=== PATIENT | female | born 1985 | race Caucasian/White ===

== ENCOUNTER 2016-10-07 16:08 | Emergency (ER) | payer OTHER ==
[2015-01-06 05:58] VITALS: BMI 21.6
[~2016-10-07 16:08] MED LIST: FLAGYL500 MG; HYDROCODON-ACE1 EAC7 PO; IBUPROFEN600 MG PO; PENICILLIN V; PRENATAL COMPLE1 TAB PO
== END 2016-10-07 19:57 | disposition home or self-care (01) ==
LOC: D.ER 16:08
DX: T14.8 Other injury of unspecified body region (principal); X58.XXXA Exposure to other specified factors, initial encounter; Y93.89 Activity, other specified; Y92.019 Unspecified place in single-family (private) house as the place of occurrence of the external cause; M62.830 Muscle spasm of back

== ENCOUNTER 2016-11-25 19:27 | Emergency (ER) | payer OTHER ==
[2015-01-06 05:58] VITALS: BMI 21.6
== END 2016-11-25 21:53 | disposition home or self-care (01) ==
LOC: D.ER 19:27
DX: R51 Headache (principal); J02.9 Acute pharyngitis, unspecified; F17.200 Nicotine dependence, unspecified, uncomplicated

== ENCOUNTER 2017-01-23 22:00 | Emergency (ER) | payer OTHER ==
[2015-01-06 05:58] VITALS: BMI 21.6
== END 2017-01-24 00:36 | disposition home or self-care (01) ==
LOC: D.ER 22:00
DX: L25.9 Unspecified contact dermatitis, unspecified cause (principal); F17.200 Nicotine dependence, unspecified, uncomplicated

== ENCOUNTER 2017-03-26 13:38 | Emergency (ER) | payer OTHER ==
[2015-01-06 05:58] VITALS: BMI 21.6
[2017-03-26 14:17] LABS: BASOPHILS 0.2 % (0-2); EOSINOPHILS 0.8 % (0-7); HEMATOCRIT 33.5 % (36.0-48.0); HEMOGLOBIN 11.6 g/dL (12-16); IMMATURE GRANULOCYTES 0.3 % (0-5); LYMPHOCYTES 15.5 % (15-50); MCHC 34.6 g/dL (31.0-37.0); MCV 95.2 fL (80.0-100.0); MEAN PLATELET VOLUME 8.3 fL (7.4-10.4); MONOCYTES 5.3 % (2-11); NEUTROPHILS 77.9 % (40-80); PLATELET COUNT 191 10x3/uL (130-400); RBC 3.52 10x6/uL (4.00-5.40); RDW 13.1 % (11.5-14.5)
[2017-03-26 14:50] LABS: ALKALINE PHOSPHATASE 75 U/L (46-116); ALT (SGPT) 21 U/L (10-68); BILIRUBIN - TOTAL 0.27 mg/dL (0.2-1.3); CALC OSMOLALITY 272 mosm/kg (275-300); CALCIUM 8.9 mg/dL (8.5-10.1); CARBON DIOXIDE 20.1 mmol/L (21.0-32.0); CHLORIDE - SERUM 103 mmol/L (98-107); CREATININE - SERUM 0.4 mg/dL (0.6-1.3); GLUCOSE 88 mg/dL (74-106); PROTEIN - SERUM 6.3 g/dL (6.4-8.2); SODIUM 137 mmol/L (136-145); UREA NITROGEN 13 mg/dL (7-18); eGFR NON AFRICAN AMERICAN > 90 mL/min (90-120)
[2017-03-26 16:00] LABS: APPEARANCE CLEAR (CLEAR); BILIRUBIN NEGATIVE (NEGATIVE); COLOR YELLOW (YELLOW); GLUCOSE NEGATIVE (NEGATIVE); KETONE NEGATIVE (NEGATIVE); LEUKOCYTE ESTERASE NEGATIVE (NEGATIVE); NITRITE NEGATIVE (NEGATIVE); PROTEIN NEGATIVE (NEGATIVE); UROBILINOGEN NORMAL (NORMAL)
[2017-03-26 16:04] LABS: BACTERIA FEW /hpf (NONE SEEN)
== END 2017-03-26 19:15 | disposition home or self-care (01) ==
LOC: D.ER 13:38
PROVIDERS: Emergency Medicine
DX: R10.2 Pelvic and perineal pain (principal); F17.200 Nicotine dependence, unspecified, uncomplicated

== ENCOUNTER → 2017-05-17 11:44 | Outpatient (CLI) | payer OTHER ==
[2015-01-06 05:58] VITALS: BMI 21.6
== END | disposition home or self-care (01) ==
LOC: D.LDO 11:44
DX: Z34.90 Encounter for supervision of normal pregnancy, unspecified, unspecified trimester (principal); R10.9 Unspecified abdominal pain

== ENCOUNTER → 2017-08-03 20:40 | Outpatient (CLI) | payer OTHER ==
[2015-01-06 05:58] VITALS: BMI 21.6
[~2017-08-03 20:40] MED LIST changes: +IBUPROFEN800 MG PO
[2017-08-03 21:38] LABS: APPEARANCE HAZY (CLEAR); BILIRUBIN NEGATIVE (NEGATIVE); COLOR YELLOW (YELLOW); GLUCOSE NEGATIVE (NEGATIVE); KETONE NEGATIVE (NEGATIVE); NITRITE NEGATIVE (NEGATIVE); PROTEIN NEGATIVE (NEGATIVE); SPECIFIC GRAVITY 1.015 (1.005-1.020); UROBILINOGEN NORMAL (NORMAL)
[2017-08-03 21:39] LABS: BACTERIA MANY /hpf (NONE SEEN); MUCUS <1+ /lpf (NONE SEEN); RED CELLS - URINE 0-5 /hpf (0-5); WHITE CELLS - URINE >50 /hpf (0-5)
== END | disposition home or self-care (01) ==
LOC: D.LDO 20:40
PROVIDERS: Obstetrics & Gynecology
DX: O26.893 Other specified pregnancy related conditions, third trimester (principal); Z3A.38 38 weeks gestation of pregnancy

== ENCOUNTER 2017-08-04 16:00 | Inpatient (IN) | payer OTHER ==
[~2017-08-04] VITALS: Ht 160 cm; Wt 57.3 kg
[~2017-08-04 16:00] MED LIST changes: -IBUPROFEN800 MG PO
[2017-08-04 22:43] VITALS: BP 106/73
[2017-08-04 22:48] VITALS: BP 106/73; Ht 160 cm; Wt 57.3 kg
[2017-08-04 23:33] LABS: HEMATOCRIT 35.5 % (36.0-48.0); HEMOGLOBIN 12.3 g/dL (12-16); MCH 32.8 pg (26.0-34.0); MCHC 34.6 g/dL (31.0-37.0); MCV 94.7 fL (80.0-100.0); RBC 3.75 10x6/uL (4.00-5.40); RDW 12.4 % (11.5-14.5); WBC 12.1 10x3/uL (4.8-10.8)
--- NOTE | 2017-08-05 07:55 | NUR ---
FUNDUS FIRM AT U/2 WITH LIGHT LOCHIA AND NO CLOTS NOTED WITH MESSAGE. PT REQUEST NEW ICE PACK, C/O PERINEAL PAIN THAT SHE RATES AT 5/10. NO SWELLING NOTED. ICE PACK APPLIED AND PT ENCOURAGED TO TRY AND TILT TO ONE SIDE AND NOT STRAIGHT UP FOR LONG PERIODS OF TIME TO HELP DECREASE PAIN. SIDE RAILS UP X 2 WITH PHONE AND CALL LIGHT WITH IN HER REACH. NURSERY NUMBER PROVIDED PER REQUEST.
--- NOTE | 2017-08-05 08:45 | NUR ---
INFANT TO BREAST AT THIS TIME, NURSERY NURSE REMAINS AT BEDSIDE. PITOCIN 20UNITS/1000ML NS COMPLETED AND PUMP TURNED OFF, IV SALINE LOCKED. BED IN LOW POSITION WITH SIDE RAILS UP X 2, PHONE AND CALL LIGHT AT BEDSIDE AND WITH IN PATIENTS REACH.
--- NOTE | 2017-08-05 10:20 | NUR ---
Bonding with infant, denies pain at this time, states understanding to call for nurse before attempting to get out of bed for first time. Bed low with side rails up x 2 and call light in reach.
--- NOTE | 2017-08-05 11:30 | NUR ---
PT UP TO VOID WITH LITTLE ASSISTANCE FROM NURSE. ABLE TO VOID 400ML WITHOUT COMPLAINT. HAMLET CARE PER HERSELF, GOWN CHANGED, HAMLET PAD AND PANTIES PROVIDED. PT AMB TO ROOM 1273 WITH IN CARRIER. DENIES NEEDS AT THIS TIME. CALL LIGHT IN REACH.
--- NOTE | 2017-08-05 12:53 | NUR ---
DIETARY NOTIFIED PER PT REQUEST ABOUT GUEST TRAY, PER MIKE IT IS ON THE WAY NOW.
--- NOTE | 2017-08-05 14:00 | NUR ---
Sprite with large cup of ice provided per request, pt up to void with no assistance needed. Rates pain at 3/10, states understanding that pain medication is ordered if needed but must let nurse know. Side rails up x 2 with call light in reach and in crib at bedside.
--- NOTE | 2017-08-05 14:45 | NUR ---
Called to room, pt ask that temp in room be adjusted because "it is to hot" temp lowered and pt shown how she may adjust this herself. No other needs at this time.
--- NOTE | 2017-08-05 15:30 | NUR ---
Call light answered large cup of ice with 2 lemon [place] oreilles drinks per pt request. Pt has menu filled out that she states was just given to her by dietary, ask that it be sent to them. Menu faxed.
--- NOTE | 2017-08-05 16:20 | NUR ---
Pt calls for assistance with . This rn to room and pt ask that be "wrapped" back up in blankets. reswaddled with 2 blankets, pt talking on phone or teaching would have been done on how to do this herself.
--- NOTE | 2017-08-05 17:36 | NUR ---
Called to room with complaint that supper tray was not correct. FOB has already started eating tray that was served. Dietary called spoke with Diana who took pt request, also faxed menu to dietary again. 2 cola and lemon [place] drink taken to room per pt request. no other needs voiced at time. in crip at bedside, side rails up x 2 with phone and call light in reach.
--- NOTE | 2017-08-05 19:00 | NUR ---
PATIENT REPORT RECEIVED FROM ZITA VALDES TO ASSUME PATIENT CARE.
--- NOTE | 2017-08-05 19:46 | NUR ---
PATIENT REQUESTING PAIN MEDICATION FOR PERINEAL PAIN. TYLENOL 3 ONE TAB PO AT THIS TIME WITH SPRITE PER PT REQUEST AND MD ORDER.
[2017-08-05 19:50] VITALS: BP 122/66
--- NOTE | 2017-08-05 19:50 | NUR ---
PATIENT LAYING IN BED WITH IN ARMS. ASSESSMENT DONE AT THIS TIME. FUNDUS FIRM, MIDLINE, -2. BLEEDING SCANT, PERIPAD AND PANTIES IN PLACE. RESPIRATIONS EVEN AND NON LAOBRED. VS WNL. NO NEEDS IDENTIFIED.
--- NOTE | 2017-08-05 20:05 | NUR ---
PILLOW PROVIDED PER PT REQUEST TO HELP PROP ARM WHILE INFANT. DENIES OTHER NEEDS AT THIS TIME. INSTRUCTED TO CALL WITH ANY FURTHER NEEDS.
--- NOTE | 2017-08-05 20:15 | NUR ---
CALLED TO ROOM BY PATIENT, WASHCLOTH PROVIDED FOR . PT STATES THAT THE SPIT UP. BULB SYRINGE WITHIN REACH AND PT TEACHING COMPLETED ON USE. PT VERBALIZES UNDERSTANDING AND DENIES ANY FURTHER NEEDS AT THIS TIME.
--- NOTE | 2017-08-05 21:00 | NUR ---
PATIENT LAYING IN BED WITH IN HER ARMS. ORANGE JUICE AND ICE PROVIDED PER PT REQUEST. PATIENT INSTRUCTED TO CALL WITH ANY FURTHER NEEDS. CALL AKBAR REMAINS IN REACH.
--- NOTE | 2017-08-05 22:00 | NUR ---
PATIENT LAYING IN BED WATCHING TV. REMAINS IN ROOM IN OPEN CRIB ON HER BACK AT THIS TIME. PATIENT STATES THAT HER PAIN IS MUCH BETTER AND RATES IT A 2/10. DENIES NEEDS AT THIS TIME.
[2017-08-05 23:00] VITALS: BP 95/54
--- NOTE | 2017-08-05 23:00 | NUR ---
PATIENT LYING IN BED, SIDE RAILS UPX2, BED LOCKED IN LOW POSITION, CALL AKBAR AND TRAY TABLE IN REACH. PT DENIES ANY NEEDS AT THIS TIME, ENCOURAGED TO CALL WITH ANY NEEDS.
--- NOTE | 2017-08-06 01:05 | NUR ---
PATIENT LYING IN BED, BROUGHT TO ROOM AT THIS TIME PER NURSERY RN. CUP OF ICE PROVIDED PER PT REQUEST. TRAY TABLE AND CALL AKBAR IN REACH. BED LOCKED IN LOW POSITION AND SIDERAILS UPX2. RESPIRATIONS EVEN AND NON LABORED. PT DENIES OTHER NEEDS AT THIS TIME. ENCOURAGED TO CALL WITH ANY NEEDS. PT VERBALIZES UNDERSTANDING.
--- NOTE | 2017-08-06 03:05 | NUR ---
PATIENT LAYING IN BED HOLDING INFANT. STATES THAT SHE JUST FINISHED FEEDING HER. DENIES NEEDS AT THIS TIME. CALL AKBAR AND TRAY TABLE IN REACH, BED LOCKED IN LOW POSITION AND SIDERAILS UPX2. INSTRUCTED TO CALL WITH ANY NEEDS. PT VERBALIZES UNDERSTANDING
[2017-08-06 05:13] LABS: RAPID PLASMA REAGIN Non Reactive (Non Reactive)
--- NOTE | 2017-08-06 05:40 | NUR ---
PATIENT ROUNDS DONE AT THIS TIME, PATIENT DENIES PAIN, ORANGE JUICE AND ICE PROVIDED PER PT. REQUEST. CALL AKBAR AND TRAY TABLE IN REACH, PT ENCOURAGED TO CALL WITH ANY FURTHER NEEDS.
--- NOTE | 2017-08-06 07:09 | NUR ---
patient report given to ru jackson to assume patient care.
[2017-08-06 08:45] VITALS: BP 105/59
--- NOTE | 2017-08-06 08:52 | NUR ---
entered room to see pt. pt states that dr ventura was in this morning and told her that she could stay another night and would evaluate in morning. pt states that she is getting up and goint to bathroom as needed.scant lochia noted on pads. fundus u2/firm with massage. pt requesting pain medication- co cramping lower back and abd. pt rates pain an 8 or 9 on scale of 0-10.
--- NOTE | 2017-08-06 09:23 | NUR ---
PT RESTING WITH EYES CLOSED WHEN ENTERED ROOM WITH PAIN MEDICATION. STARTLES WHEN NAME CALLED. PT STATES THAT SHE IS NOT ALLERGIC TO TYLENOL. MED GIVEN PER PT REQUEST.
--- NOTE | 2017-08-06 11:30 | NUR ---
pt resting -states she is napping some with infant in room. states pain in lower back and abd is better.
[2017-08-06 12:30] VITALS: BP 101/63
--- NOTE | 2017-08-06 13:04 | NUR ---
up to shower. linens changed.
--- NOTE | 2017-08-06 14:08 | NUR ---
rings call light- requesting pain medication for co cramping in abd. rates pain an 8-9 on scale of 0-10.
--- NOTE | 2017-08-06 14:25 | NUR ---
dr ventura in unit- states that pt may stay overnight if desires and he will see her in the morning.
--- NOTE | 2017-08-06 17:30 | NUR ---
sitting up in bed eating dinner- denies needs.
[2017-08-06 19:17] VITALS: BP 112/74
--- NOTE | 2017-08-06 19:23 | NUR ---
PT RECEIVED TO MY CARE IN LDR 1273. PT RESTING IN BED IN HIGH FOWLERS POSITION, HOLDING , PT IN NO ACUTE DISTRESS. PT IS A 31YO G5 NOW WITH OF VIABLE FEMALE INFANT YESTERDAY @ 0645. INFANT @ 39.0 WKS GESTATION. PT WITH NO LACERATION OR EPIS. AAOX3. HR REGULAR. LUNGS CTAB. ABDOMEN SOFT AND NON TENDER. BS ACTIVE TIMES 4. FUNDUS NOT PALPATED. HAMLET PAD AND PANTIES IN PLACE. PERINIUM APPEARS TO BE INTACT. LOCHIA RUBRA SCANT. PT STATES SHE IS PASSING GAS BUT HAS NOT HAD A BM SINCE . PT DENIES DIFFICULTY VOIDING AND STATES SHE TOLERATING A REGULAR DIET. NO SWELLING NOTED TO UPPER OR LOWER EXTREMITIES BILATERALLY. 18G SL IN PLACE TO LEFT WRIST, FLUSHED WITH 5 CC NS WITHOUT DIFFICULTY. NO REDNESS OR EDEMA NOTED TO SITE. PT RATES PAIN AT 2/10 AT THIS TIME. DENIES THE NEED FOR MEDICATION. PT DENIES ANY FURTHER NEEDS. BED IN LOW POSITION, SIDE RAILS UP TIMES 2, CALL LIGHT AND PHONE IN REACH. REMAINS AT PT BS FOR COUPLET CARE. WILL CONT TO MONITOR PT STATUS.
--- NOTE | 2017-08-06 21:04 | NUR ---
RN TO PT BS FOR ROUNDS. PT RESTING IN BED IN HIGH FOWLERS POSITION, HOLDING , IN NO ACUTE DISTRESS. PT REQUESTS FRESH ICE MUG. PROVIDED. PT DENIES ANY FURTHER NEEDS AT THIS TIME. BED IN LOW POSITION, SIDE RAILS UP TIMES 2, CALL LIGHT AND PHONE IN REACH. INFANT REMAINS AT PT BS FOR SUPPORT AND ASSISTANCE. WILL CONT TO MONITOR PT STATUS.
--- NOTE | 2017-08-06 23:03 | NUR ---
RN TO PT BS FOR ROUNDS. PT RESTING IN BED IN HIGH FOWLERS POSITION, HOLDING , IN NO ACUTE DISTRESS. PT REQUESTS ADDITIONAL HAMLET PADS. PROVIDED AT THIS TIME. PT DENIES ANY FURTHER NEEDS AT THIS TIME. BED IN LOW POSITION, SIDE RAILS UP TIMES 2, CALL LIGHT AND PHONE IN REACH. INFANT REMAINS AT PT BS FOR COUPLET CARE. WILL CONT TO MONITOR PT STATUS.
--- NOTE | 2017-08-07 00:01 | NUR ---
RN TO PT BS FOR ROUNDS. PT RESTING IN BED IN SEMI-FOWLERS POSITION, WITH EYES CLOSED, IN NO ACUTE DISTRESS. RESPIRATIONS EVEN AND UNLABORED. BED IN LOW POSITION, SIDE RAILS UP TIMES 2, CALL LIGHT AND PHONE IN REACH. REMAINS AT PT BS FOR SUPPORT AND ASSISTANCE. WILL CONT TO MONITOR PT STATUS.
--- NOTE | 2017-08-07 01:34 | NUR ---
HOLDING AT PRESENT. C/O ABD. CRAMPING PT. RATES A 7 OF 10 ON PAIN SCALE. PAIN MED GIVEN ORDERED. ICE WATER PROVIDED TO PT. CALL LIGHT WITHIN REACH. PT. CURRENTLY WATCHING TV.
--- NOTE | 2017-08-07 02:14 | NUR ---
RN TO PT BS FOR ROUNDS. PT RESTING IN BED IN SEMI-FOWLERS POSITION, WITH EYES CLOSED, IN NO ACUTE DISTRESS. RESPIRATIONS EVEN AND UNLABORED. BED IN LOW POSITION, SIDE RAILS UP TIMES 2, CALL LIGHT AND PHONE IN REACH. REMAINS AT PT BS FOR COUPLET CARE. WILL CONT TO MONITOR PT STATUS.
--- NOTE | 2017-08-07 03:27 | NUR ---
RN TO PT BS. INFANT FUSSY. ADDITIONAL BOTTLE PROVIDED TO PT FOR FEED. PT STATES SHE WILL ATTEMPT TO BREASTFEED INFANT FIRST PRIOR TO BOTTLEFEED. PT DENIES ANY NEEDS BED IN LOW POSITION, SIDE RAILS UP TIMES 2, CALL LIGHT AND PHONE IN REACH. REMAINS AT PT BS FOR COUPLET CARE. WILL GIVE REPORT TO NURSERY NURSE AND CONT TO MONITOR PT STATUS.
--- NOTE | 2017-08-07 05:50 | NUR ---
RN TO PT BS FOR ROUNDS. PT RESTING IN BED IN SEMI-FOWLERS POSITION, WITH EYES CLOSED, IN NO ACUTE DITRESS. RESPIRATIONS EVEN AND UNLABORED. BED IN LOW POSITION, SIDE RAILS UP TIMES 2, CALL LIGHT AND PHONE IN REACH. INFANT REMAINS AT PT BS FOR COUPLET CARE. WILL CONT TO MONITOR PT STATUS.
--- NOTE | 2017-08-07 07:33 | NUR ---
SLEEPING ON RIGHT SIDE. RESPIRATIONS EVEN. SIDE RAILS UP X 2. NOT AROUSED AT THIS TIME. WILL COMPLETE ASSESSMENT WHEN AWAKE. ANTICIPATE DC HOME TODAY.
[2017-08-07 08:06] VITALS: BP 115/61
--- NOTE | 2017-08-07 08:10 | NUR ---
AWAKE, LAYING ON RIGHT SIDE. SHIFT ASSESSMENT DONE. 04/14 ABDOMINAL PAIN "LIKE SOMETHING SITTING ON MY BLADDER". DISCUSSED UTERUS AND POSSIBLE NEED TO VOID AT THIS TIME. ENCOURAGED TO GET UP AND VOID. DECLINES FLU VACCINE, DESIRES TDAP BEFORE GOING HOME. INFANT IN NURSERY. BOTTLEFEEDING. SMOKER. SIDE RAILS UP X 2, CALL LIGHT IN REACH.
--- NOTE | 2017-08-07 08:25 | NUR ---
TYLENOL #3 GIVEN PO FOR RELIEF OF PAIN AFTER CONFIRMING NO ALLERGIES TO TYLENOL NOR CODEINE. STATES "I DON'T KNOW WHY THEY SAID THAT. I CANT TAKE LORITABS". SAYS HER PAIN IS PRIMARILY LOCATED LEFT UPPER ABDOMEN UNDER LOWER COSTAL REGION. SAYS IT COMES AND GOES SINCE CHILDBIRTH. ACTIVE BS. SLIGHT TENDERNESS OVER AREA. SITTING UP IN BED EATING BREAKFAST. UNSURE OF LAST BM. WILL REASSESS PAIN AFTER TYLENOL #3.
--- NOTE | 2017-08-07 09:18 | NUR ---
SITTING UP IN BED EATING BREAKFAST. INFANT IN ARMS. SAYS PAIN IS BETTER 3-12/13. NO REQUESTS. CALL LIGHT IN REACH.
--- NOTE | 2017-08-07 10:33 | NUR ---
SLEEPING IN BED WITH IN ARMS. AROUSED FROM SLEEP. INSTRUCTED NOT TO SLEEP WITH IN BED AND REASONS. PLACED IN CRIB NEAR BEDSIDE. DESIRES TO CONTINUE TO SLEEP. LIGHTS ON LOW, SIDE RAILS UP X 2, CALL LIGHT IN REACH. INSTRUCTED ON TDAP, INFORMATION IN ROOM AND RECOMMENDED REVIEWING WHEN SHE WAKES UP. VERBALIZED UNDERSTANDING.
[2017-08-07] MEDS ORDERED: IBUPROFEN800 MG PO (14:19)
--- NOTE | 2017-08-07 14:45 | NUR ---
DC'D VIA WHEELCHAIR WITH IN CARSEAT AFTER PROVIDING VERBAL AND WRITTEN INFORMATION ON ROUTINE PP CARE, S&S INFECTION, PP DEPRESSION, SMOKING CESSATION, CARSEAT SAFETY, MEDICATION ADMINISTRATION AND FOLLOW-UP. ALL BELONGINGS REMOVED FROM ROOM. HAS PRESCRIPTION FOR MOTRIN.
== END 2017-08-07 14:45 | disposition home or self-care (01) | DRG 775 ==
LOC: D.LD 16:00
PROVIDERS: ADMIT Obstetrics & Gynecology
PROC: 10E0XZZ Delivery of Products of Conception, External Approach (ICD-10-PCS; principal; 2017-08-05)
PROC: 3E0P7VZ Introduction of Hormone into Female Reproductive, Via Natural or Artificial Opening (ICD-10-PCS; 2017-08-05)
DX: O62.3 Precipitate labor (principal); O69.81X0 Labor and delivery complicated by cord around neck, without compression, not applicable or unspecified; Z3A.39 39 weeks gestation of pregnancy; Z37.0 Single live birth

== ENCOUNTER 2017-11-24 12:14 | Emergency (ER) | payer MEDICAID ==
[2017-08-04 22:48] VITALS: BMI 22.3
[~2017-11-24 12:14] MED LIST changes: +IBUPROFEN800 MG PO
[2017-11-24 13:18] LABS: ALBUMIN 3.9 g/dL (3.4-5.0); ALKALINE PHOSPHATASE 74 U/L (46-116); ALT (SGPT) 24 U/L (10-68); BILIRUBIN - TOTAL 0.51 mg/dL (0.2-1.3); CALC OSMOLALITY 274 mosm/kg (275-300); CARBON DIOXIDE 23.5 mmol/L (21.0-32.0); CHLORIDE - SERUM 105 mmol/L (98-107); CREATININE - SERUM 0.7 mg/dL (0.6-1.3); GLUCOSE 90 mg/dL (74-106); POTASSIUM - SERUM 3.9 mmol/L (3.5-5.1); PROTEIN - SERUM 7.2 g/dL (6.4-8.2); SODIUM 138 mmol/L (136-145); UREA NITROGEN 11 mg/dL (7-18); eGFR NON AFRICAN AMERICAN > 90 mL/min (90-120)
[2017-11-24 13:21] LABS: HEMATOCRIT 38.9 % (36.0-48.0); HEMOGLOBIN 13.3 g/dL (12-16); LYMPHOCYTES 38.8 % (15-50); MCH 31.1 pg (26.0-34.0); MCHC 34.2 g/dL (31.0-37.0); MCV 91.1 fL (80.0-100.0); MEAN PLATELET VOLUME 8.2 fL (7.4-10.4); RBC 4.27 10x6/uL (4.00-5.40); RDW 12.6 % (11.5-14.5); WBC 4.4 10x3/uL (4.8-10.8)
[2017-11-24 13:24] LABS: PLATELET COUNT 245 10x3/uL (130-400)
[2017-11-24 13:26] LABS: TROPONIN-I < 0.017 ng/mL (0.000-0.060)
[2017-11-24 13:40] LABS: CKMB 0.3 U/L (0.0-3.6); CREATINE KINASE 69 UL (21-215); PRO BNP 106 pg/mL (0-125)
[2017-11-24 13:52] LABS: APTT 28.1 SECONDS (22.8-39.4); INR 1.08 (0.85-1.17); PROTIME 13.6 SECONDS (11.6-15.0)
[2017-11-24 13:53] LABS: D-DIMER-QUANTITATIVE < 0.27 ug/mLFEU (0.20-0.54)
== END 2017-11-24 17:32 | disposition home or self-care (01) ==
LOC: D.ER 12:14
PROVIDERS: Family Medicine
DX: M94.0 Chondrocostal junction syndrome [Tietze] (principal); F17.200 Nicotine dependence, unspecified, uncomplicated

== ENCOUNTER → 2019-03-09 13:31 | Outpatient (CLI) | payer MEDICAID ==
[2017-08-04 22:48] VITALS: BMI 22.3
[2019-03-09 13:56] LABS: APPEARANCE CLEAR (CLEAR); BILIRUBIN NEGATIVE (NEGATIVE); COLOR YELLOW (YELLOW); GLUCOSE NEGATIVE (NEGATIVE); KETONE NEGATIVE (NEGATIVE); NITRITE NEGATIVE (NEGATIVE); PROTEIN NEGATIVE (NEGATIVE)
== END | disposition home or self-care (01) ==
LOC: D.LDO 13:31
PROVIDERS: ATTEND Obstetrics & Gynecology
DX: O26.893 Other specified pregnancy related conditions, third trimester (principal); Z3A.33 33 weeks gestation of pregnancy

== ENCOUNTER → 2019-04-09 15:55 | Outpatient (CLI) | payer MEDICAID ==
[2017-08-04 22:48] VITALS: BMI 22.3
[2019-04-09 16:39] LABS: APPEARANCE HAZY (CLEAR); BILIRUBIN NEGATIVE (NEGATIVE); COLOR YELLOW (YELLOW); GLUCOSE NEGATIVE (NEGATIVE); KETONE NEGATIVE (NEGATIVE); NITRITE NEGATIVE (NEGATIVE); PROTEIN NEGATIVE (NEGATIVE); UROBILINOGEN NORMAL (NORMAL)
[2019-04-09 16:41] LABS: BACTERIA MODERATE /hpf (NONE SEEN); RED CELLS - URINE OCC /hpf (0-5); WHITE CELLS - URINE 0-5 /hpf (0-5)
[2019-04-09 16:54] LABS: UDS - AMPHET NEGATIVE QUAL (NEGATIVE); UDS - BARB NEGATIVE QUAL (NEGATIVE); UDS - BENZO NEGATIVE QUAL (NEGATIVE); UDS - COCAINE NEGATIVE QUAL (NEGATIVE); UDS - OPIATE NEGATIVE QUAL (NEGATIVE); UDS - PCP NEGATIVE QUAL (NEGATIVE); UDS - THC NEGATIVE QUAL (NEGATIVE)
== END | disposition home or self-care (01) ==
LOC: D.LDO 15:55
PROVIDERS: ATTEND Obstetrics & Gynecology
DX: O26.90 Pregnancy related conditions, unspecified, unspecified trimester (principal)

== ENCOUNTER → 2019-04-12 10:02 | Outpatient (CLI) | payer SELFPAY ==
[2017-08-04 22:48] VITALS: BMI 22.3
== END | disposition home or self-care (01) ==
LOC: D.LDO 10:02
PROVIDERS: ATTEND Obstetrics & Gynecology
DX: O35.9XX0 Maternal care for (suspected) fetal abnormality and damage, unspecified, not applicable or unspecified (principal)

== ENCOUNTER 2019-04-16 05:12 | Inpatient (IN) | payer MEDICAID ==
[~2019-04-16] VITALS: Ht 160 cm; Wt 53.1 kg
[2019-04-16 05:34] VITALS: BP 115/55; Ht 160 cm; Wt 53.1 kg
[2019-04-16 07:34] LABS: HEMATOCRIT 32.8 % (36.0-48.0); MCH 35.9 pg (26.0-34.0); MCHC 36.6 g/dL (31.0-37.0); MCV 98.2 fL (80.0-100.0); MEAN PLATELET VOLUME 9.8 fL (7.4-10.4); RBC 3.34 10x6/uL (4.00-5.40); RDW 14.3 % (11.5-14.5); WBC 8.9 10x3/uL (4.8-10.8)
[2019-04-16 07:39] LABS: APPEARANCE CLEAR (CLEAR); BILIRUBIN NEGATIVE (NEGATIVE); COLOR YELLOW (YELLOW); GLUCOSE NEGATIVE (NEGATIVE); KETONE NEGATIVE (NEGATIVE); NITRITE NEGATIVE (NEGATIVE); PROTEIN NEGATIVE (NEGATIVE); SPECIFIC GRAVITY 1.005 (1.005-1.020); UROBILINOGEN NORMAL (NORMAL)
[2019-04-16 07:41] LABS: UDS - AMPHET NEGATIVE QUAL (NEGATIVE); UDS - BARB NEGATIVE QUAL (NEGATIVE); UDS - BENZO NEGATIVE QUAL (NEGATIVE); UDS - COCAINE NEGATIVE QUAL (NEGATIVE); UDS - OPIATE NEGATIVE QUAL (NEGATIVE); UDS - PCP NEGATIVE QUAL (NEGATIVE); UDS - THC NEGATIVE QUAL (NEGATIVE)
[2019-04-16 19:22] VITALS: BP 132/58
--- NOTE | 2019-04-16 19:30 | NUR ---
PATIENT UP ON BEDPAN
--- NOTE | 2019-04-16 19:40 | NUR ---
DR DELGADO PAGED WITH IMMEDIATE CALL BACK. INFORMED OF PT ALLERGY TO HYDROCODONE. ORDERS NOTED TO D/C TETE ORDER
--- NOTE | 2019-04-16 20:34 | NUR ---
PATIENT VOIDED 500ML. PERICARE DONE AND PT . WILL CONTINUE TO MONITOR
--- NOTE | 2019-04-16 21:08 | NUR ---
INFANT TO NURSERY VIA OPEN CRIB PER PT REQUEST.
--- NOTE | 2019-04-16 21:15 | NUR ---
motrin administered per md orders and pt request, see emar
--- NOTE | 2019-04-16 21:25 | NUR ---
PT AMBULATED TO BATHROOM, VOIDED WITHOUT DIFFICULTY AT THIS TIME, PERICARE PERFORMED WITH BETADINE AND WATER. CLEAN PADS AND PANTIES PLACED. PT CHANGED INTO A CLEAN GOWN AND AMBULATED TO WHEELCHAIR. PT STATES THAT SHE NEEDS TO GO OUT TO GET SOME FRESH AIR. FOB AND FAMILY MEMBERS AT HER SIDE.
--- NOTE | 2019-04-16 21:50 | NUR ---
PT TO ROOM 1274, UP TO BATHROOM AND INSTRUCTED TO CALL WITH ANY NEEDS.
--- NOTE | 2019-04-16 22:30 | NUR ---
REPORT RECEIVED FROM PAUL AHUMADA
--- NOTE | 2019-04-16 22:37 | NUR ---
PATIENT REPORT TO ZITA FLORENTINO TO ASSUME PT CARE AT THIS TIME
--- NOTE | 2019-04-16 23:01 | NUR ---
PT IN BED, VISITORS AT BEDSIDE, DENIES ANY NEEDS. VSS
--- NOTE | 2019-04-16 23:19 | NUR ---
PT C/O NAUSEA. DR DANNY NIETO. ORDERS FROM ZOFRAN 4MG PO PRN Q 6 ORDERED
--- NOTE | 2019-04-16 23:25 | NUR ---
ZOFRAN 4MG PO GIVEN FOR NAUSEA.
[2019-04-17 00:01] VITALS: BP 110/62
--- NOTE | 2019-04-17 00:30 | NUR ---
PT C/O PAIN. STATED THAT TYLENOL WAS OK TO TAKE AND PT STATED NO ALLERGY TO TYLENOL. DR DELGADO ORDERED TYLENOL 100MG Q 6PRN
--- NOTE | 2019-04-17 00:35 | NUR ---
PT C/O PAIN. TYLENOL 1000MG PO GIVEN PER ORDER. DENIES ANY OTHER NEED
--- NOTE | 2019-04-17 02:22 | NUR ---
PT SITTING UP IN BED. WATCHING TV. DENIES NEEDS AT THIS TIME
--- NOTE | 2019-04-17 03:30 | NUR ---
RESTING IN BED WITH EYES CLOSED. RESP WNL. CL IN REACH. SR UP X 2. WILL MONITOR
--- NOTE | 2019-04-17 04:37 | NUR ---
RESTING WITH EYES CLOSED. NO DISTRESS NOTED, CL IN REACH
--- NOTE | 2019-04-17 05:21 | NUR ---
AWAKE AND ALERT SITTING UP IN BED, DENIES ANY NEEDS
[2019-04-17 05:22] VITALS: BP 112/67
[2019-04-17 07:14] LABS: RAPID PLASMA REAGIN Non Reactive (Non Reactive)
--- NOTE | 2019-04-17 07:43 | NUR ---
PT SITTING UP IN BED EATING BREAKFAST, INFANT ON BREAST, INFORMED PT THAT I WILL BE BACK TO DO ASSESSMENT, PT VERBALIZES UNDERSTANDING, C/O CRAMPING, ADM RAVINDERRIN PER MD ORDERS, SEE EMAR, PT DENIES FURTHER NEEDS
[2019-04-17 08:01] LABS: BASOPHILS 0.2 % (0-2); EOSINOPHILS 1.3 % (0-7); HEMATOCRIT 30.5 % (36.0-48.0); HEMOGLOBIN 10.6 g/dL (12-16); IMMATURE GRANULOCYTES 0.6 % (0-5); MCH 33.3 pg (26.0-34.0); MCHC 34.8 g/dL (31.0-37.0); MEAN PLATELET VOLUME 9.7 fL (7.4-10.4); NEUTROPHILS 67.9 % (40-80); PLATELET COUNT 183 10x3/uL (130-400); RBC 3.18 10x6/uL (4.00-5.40); RDW 14.3 % (11.5-14.5); WBC 10.3 10x3/uL (4.8-10.8)
[2019-04-17 08:06] LABS: MCV 95.9 fL (80.0-100.0)
[2019-04-17 08:30] VITALS: BP 103/56
--- NOTE | 2019-04-17 08:30 | NUR ---
ASSESSMENT PER FLOW SHEET, SALINE LOCK IN LEFT FA INTACT WITH NO REDNESS OR EDEMA, FF, ML, U/1, PT REPORTS LITE BLEEDING WITH NO CLOTS, REPORTS FLATUS, NO BM AND VOIDING WITH NO DIFFICULTY, PT DENIES NEEDS AT THIS TIME
--- NOTE | 2019-04-17 08:32 | NUR ---
Lee Paul 04/17/[birth year] S: Patient states is going great. latches with out any problems, no sore nipples or tenderness, and feels like is going great. Denies any questions or concerns. O: Patient lying in bed, in nursery. States she is tried and plans on trying to get some rest. Praised for . Informed patient takes time, practice, and patience in the beginning. Explained breastmilk composition, benefits of skin to skin, position, how to verify is latched correctly, supply and demand, feeding cues, normal feeding patterns for a breastfed , and the importance of practicing responsive feeding. It is normal for infant to want to nurse often every 2-3 hours or sooner. How long remain latch can vary per feeding and this is normal. Asked if any pain or discomfort with infant latch or any questions/concerns? Encouraged to ask for help as needed with latching infant. A: Patient appear confident with due to no questions or concerns. Expresses positive feedback with experience. P: Continue to support during hospital visit. Gerard Scales, CLC
--- NOTE | 2019-04-17 09:30 | NUR ---
PT RESTING WITH EYES CLOSED, RESP QUIET, NO DISTRESS NOTED, LEFT UNDISTURBED AT THIS TIME
--- NOTE | 2019-04-17 10:33 | NUR ---
PT AWAKE, VISITING WITH FRIEND, FRIEND HOLDING INFANT AT THIS TIME, FOB AT BEDSIDE, PT DENIES NEEDS OR PAIN AT THIS TIME
--- NOTE | 2019-04-17 11:42 | NUR ---
PT HOLDING INFANT, DENIES NEEDS OR PAIN AT THIS TIME
--- NOTE | 2019-04-17 12:35 | NUR ---
PT EATING LUNCH, HOLDING , DENIES NEEDS OR PAIN AT THIS TIME, FOB AT BEDSIDE
--- NOTE | 2019-04-17 13:38 | NUR ---
PT IMMIGRATION PATROL INSPECTOR LIGHT, REQUESTED AND PROVIDED HAMLET PADS PER LISA BOO, RN, THIS RN TO ROOM ALSO, PT INFORMED THAT DR DELGADO SAID THAT PT CANNOT LEAVE UNIT AT ALL, PT VERBALIZES UNDERSTANDING, DENIES FURTHER NEEDS
--- NOTE | 2019-04-17 14:30 | NUR ---
UPON ENTERING ROOM, PT IS RESTING WITH EYES CLOSED, HOLDING , PT AROUSES TO SOFT VERBAL STIMULATION, INFORMED PT REGARDING SLEEPING WITH IN BED, PT VERBALIZES UNDERSTANDING, INFANT TO NSY VIA OPEN CRIB CART PER THIS RN, PT DENIES NEEDS OR PAIN AT THIS TIME, FOB ASLEEP ON COUCH
--- NOTE | 2019-04-17 15:23 | NUR ---
PT HOLDING INFANT, , DENIES NEEDS OR PAIN AT THIS TIME
--- NOTE | 2019-04-17 16:36 | NUR ---
DINNER TRAY SERVED, ADM TYLENOL PER REQUEST, SEE EMAR, PT REQUESTED AND PROVIDED CREAM AND SUGAR, DENIES FURTHER NEEDS
[2019-04-17 17:13] VITALS: BP 106/57
--- NOTE | 2019-04-17 17:13 | NUR ---
PT FINISHED EATING, INFANT AT THIS TIME, VS OBTAINED, DENIES NEEDS OR PAIN
--- NOTE | 2019-04-17 18:17 | NUR ---
PT UP IN ROOM, JUST FINISHED CHANGING INFANTS DIAPER, PT DENIES NEEDS OR PAIN AT THIS TIME
[2019-04-17 19:57] VITALS: BP 108/55
--- NOTE | 2019-04-17 20:06 | NUR ---
1954 [place] REC'D IN BED ASLEEP AT THIS TIME. DENIES PAIN. SALINE LOCK TO THE LEFT FOREARM. LUNGS CELAR. BS+. FUNDUS FIRM AND U/2 WITH SCANT LOCHIA NOTED. NO DISTRESS NOTED. PT DENIES ANY NEEDS AT THIS TIME. CALL LIGHT IN PT REACH. Trini PAK RN
--- NOTE | 2019-04-17 21:45 | NUR ---
PT RESTING AT THIS TIME. RESPS EVEN AND UNLABORED . Trini PAK RN
--- NOTE | 2019-04-17 23:25 | NUR ---
pt asleep at this time. familia nava rn
--- NOTE | 2019-04-18 00:51 | NUR ---
PT MEDICATED WITH MOTRIN FOR BACK PAIN AT A LEVEL OF 8. WILL CONTINUE TO MONITOR. PT AWAKENENED AND INSTRUCTED TO PLACE INFANT IN CRIB. INFNAT BEGAN ROOTING AND WAS PLACED TO BREAST. Trini PAK RN
--- NOTE | 2019-04-18 02:03 | NUR ---
PT REPORTS NO PAIN AT THIS TIME. PT RESTING COMFORTABLY. Trini PAK RN
--- NOTE | 2019-04-18 03:50 | NUR ---
PT REC'D IN BED ASLEEP WITH IN ARMS. INFANT COVERED WITH BLANKET. PT AWAKENED AT THIS TIME AND INSTRUCTED TO PLACE INFANT IN CRIB OR BREASTFEED INFANT AND STAY AWAKE TO AVOID SUFFOCATION RISK. UNDERSTANDING VERBALIZED. REC'D FROM MOTHER AND TAKEN TO NURSERY. MOTHER DENIES NEEDS AT THIS TIME. Trini PAK RN
[2019-04-18 07:55] VITALS: BP 109/68
--- NOTE | 2019-04-18 09:25 | NUR ---
pt up to br, voiding per self without difficulty, pt denies heavy bleeding or passing clots. pericare done per self. pt provided with peripads/panties. pt denies all other needs at this time. call light within reach.
--- NOTE | 2019-04-18 09:38 | NUR ---
Lee Paul WILMAR@ 8:45 S: Client states has a perfect latch. latched immediately and is going great. No questions or concerns regarding . No problems with sore nipples or latching . O: Patient sitting up in bed eating breakfast, infant sleeping in crib, family member sleep on sofa in room. Praised for . Informed patient takes time, practice, and patience in the beginning. Explained normal feeding patterns for a breastfed , benefits of skin to skin, feeding cues, positions, how to verify infant is latched correctly, and encouraged to practice responsive feeding. It is normal for infant to want to nurse often and how long remains latch to vary per feeding. Asked if any questions, concerns, pain or discomfort with latching? Please ask for help as needed with . A: Patient appears confident with due to no questions or concerns. P: Continue to promote during hospital visit. Gerard Scales, CLC
--- NOTE | 2019-04-18 13:10 | NUR ---
PT SITTING UP IN THE BED, FEEDING BOTTLE TO INFANT. PT WISHES TO STAY UNTIL BABY GETS CIRCUMCISED LATER THIS AFTERNOON. TELEPHONE CALL MADE TO DR. DELGADO FOR DISCHARGE ORDER, TELEPHONE ORDER RECEIVED TO DISCHARGE PT HOME FOR FOLLOW UP IN 4 WEEKS FOR .
[2019-04-18] MEDS ORDERED: IBUPROFEN600 MG PO (21:34)
--- NOTE | 2019-04-19 03:47 | MORECARE ---
CASE MANAGEMENT DISCHARGE SUMMARY PATIENT: IDRIS PAUL UNIT: [id number] ADM DATE: 04/16/19 AGE: 33 : 87 SEX: F ROOM/BED: D.1274 AUTHOR: CECILIADOC PHYSICIAN: REFERRING PHYSICIAN: BEA DELGADO MD DATE OF SERVICE: 04/18/19 Discharge Plan Patient Name: IDRIS PAUL Facility: [facility]:[place] : 1985 Planned Disposition: Anticipated Discharge Date: Discharge Date: Expected LOS: Initial Reviewer: [email or web address] Initial Review Date: 04/16/2019 Generated: 04/18/19 11:00 pm Comments DCP- Discharge Planning Updated by [email or web address]: Natalie Wilder on 04/18/19 9:[address] DC PLAN: MOB states she plans taking home Address: Can't give an address moving to [facility] tomorrow "Space in my Place" DC NEEDS: Denies any needs TRANSPORTATION: friend will transport to appointments or use [facility] bus WIC: No appointment yet MEDICAID: MOB states she has filled out paperwork CAR SEAT: Yes FEEDING PLAN: Plans breast feeding BABY NAME: Mathew Engel FOB: Lex Engel MOB: Idris Paul SOLAR SALES CONSULTANT: Chanel CARE: MOB states she had care throughout SUPPLIES: MOB states has car seat, bed, diapers only has bottles from hospital to use if needed WATER SOURCE: city?? HEAT SOURCE: Electric ?? AIR CONDITIONING: yes ?? CM met with MOB after obtaining verbal consent regarding dc planning/needs. MOB to return to her home with infant. States home environment is safe. She states in addition to herself, five other people live in the home. MOB states she will have transportation either by friends or [employer] to follow up appointments. MOB states this is her fifth child. After CM probed asking multiple questions regarding patients other children she admitted that her other children was in DHS custody. Ages 5, 4, 1.5. The 11 yr. old child the father has custody. MOB states that she lost custody of children about a month ago d/t not having any electricity. 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 MOB states that ANNETTA is self-employed but will get another job once they move to [facility]. MOB states there are no pets in the home. MOB states that she and ANNETTA both smoke but it is outside the home. Denies any drug or etoh use in the home. When CM was asking about home situation and address JENNIFER was very vague. Stating she doesn't know about heat/ air / address or anything else directly related to home situation. MOB states that she has a friend that will pick her up after 10pm tonight after he gets off work. MOB states that she will stay with this friend tonight then move to [facility] tomorrow. MOB can't give an address of where she will stay tonight. Denies any other discharge needs at this time. CM will continue to follow and assist as needed with dc planning/needs. CM notified nursery staff regarding MOB not having custody of other children. CM also explained that it was very difficult to get information out of mother. CM called [facility] regarding questionable safety of infant upon discharge. DHS worker at [facility] didn't state that the infant needed to be held at hospital but CM, nursery and L&D nursing staff don't feel it would be safe for infant to discharge with no known address and with other children being already in [facility] custody. CASE # [id number] [facility] stated that it will probably be tomorrow before a dependency case manager will be out to evaluate. Nursery and L&D staff will notify physicians contact and service clerks supervisor. CM notified visiting housekeeper and pilot supervisor. Patient Name: IDRIS PAUL Page [id number] at 0347 All edits/amendments must be made on the electronic document DICTATION DATE: 04/18/192199 RUBBER TIRE CURER: LUDIVINA 04/18/192199 RPT#: [id number] DC DATE:04/18/19 STATUS: DIS IN [facility] [address] [place] [address] END OF REPORT
--- NOTE | 2019-04-19 03:47 | MORECARE ---
CASE MANAGEMENT DISCHARGE SUMMARY PATIENT: IDRIS PAUL UNIT: [id number] ADM DATE: 04/16/19 AGE: 33 : 87 SEX: F ROOM/BED: D.1274 AUTHOR: CECILIADOC PHYSICIAN: REFERRING PHYSICIAN: BEA DELGADO MD DATE OF SERVICE: 04/18/19 Discharge Plan Patient Name: IDRIS PAUL Facility: [facility]:[place] : 1985 Planned Disposition: Anticipated Discharge Date: Discharge Date: Expected LOS: Initial Reviewer: [email or web address] Initial Review Date: 04/16/2019 Generated: 04/18/19 11:14 pm Comments DCP- Discharge Planning Updated by [email or web address]: Natalie Wilder on 04/18/19 9:[address] DC PLAN: MOB states she plans taking home Address: Can't give an address moving to [facility] tomorrow "Space in my Place" DC NEEDS: Denies any needs TRANSPORTATION: friend will transport to appointments or use [facility] bus WIC: No appointment yet MEDICAID: MOB states she has filled out paperwork CAR SEAT: Yes FEEDING PLAN: Plans breast feeding BABY NAME: Mathew Engel FOB: Lex Watersmeet MOB: Idris Paul LEAD BI DEVELOPER: Chanel CARE: MOB states she had care throughout SUPPLIES: MOB states has car seat, bed, diapers only has bottles from hospital to use if needed WATER SOURCE: city?? HEAT SOURCE: Electric ?? AIR CONDITIONING: yes ?? CM met with MOB after obtaining verbal consent regarding dc planning/needs. MOB to return to her home with infant. States home environment is safe. She states in addition to herself, five other people live in the home. MOB states she will have transportation either by friends or [employer] to follow up appointments. MOB states this is her fifth child. After CM probed asking multiple questions regarding patients other children she admitted that her other children was in DHS custody. Ages 5, 4, 1.5. The 11 yr. old child the father has custody. MOB states that she lost custody of children about a month ago d/t not having any electricity. 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 MOB states that ANNETTA is self-employed but will get another job once they move to [facility]. MOB states there are no pets in the home. MOB states that she and ANNETTA both smoke but it is outside the home. Denies any drug or etoh use in the home. When CM was asking about home situation and address JENNIFER was very vague. Stating she doesn't know about heat/ air / address or anything else directly related to home situation. MOB states that she has a friend that will pick her up after 10pm tonight after he gets off work. MOB states that she will stay with this friend tonight then move to [facility] tomorrow. MOB can't give an address of where she will stay tonight. Denies any other discharge needs at this time. CM will continue to follow and assist as needed with dc planning/needs. CM notified nursery staff regarding MOB not having custody of other children. CM also explained that it was very difficult to get information out of mother. CM called [facility] regarding questionable safety of infant upon discharge. DHS worker at [facility] didn't state that the infant needed to be held at hospital but CM, nursery and L&D nursing staff don't feel it would be safe for infant to discharge with no known address and with other children being already in [facility] custody. CASE # [id number] [facility] stated that it will probably be tomorrow before a residential case manager will be out to evaluate. Nursery and L&D staff will notify physicians documentation liaison. CM notified refrigeration houseman and CM supervisor hand silvering. Last DP export: 04/18/19 9:00 p Patient Name: IDRIS PAUL Page [id number] at 0347 All edits/amendments must be made on the electronic document DICTATION DATE: 04/18/192212 ELECTRONIC COILS SUPERVISOR: LUDIVINA 04/18/192212 RPT#: [id number] DC DATE:04/18/19 STATUS: DIS IN [facility] [address] [place] [address] END OF REPORT
--- NOTE | 2019-04-19 17:48 | MORECARE ---
CASE MANAGEMENT DISCHARGE SUMMARY PATIENT: IDRIS PAUL UNIT: [id number] ADM DATE: 04/16/19 AGE: 33 : 87 SEX: F ROOM/BED: D.1274 AUTHOR: CECILIA,DOC PHYSICIAN: REFERRING PHYSICIAN: BEA DELGADO MD DATE OF SERVICE: 04/19/19 Discharge Plan Patient Name: IDRIS PAUL Facility: [facility]:[place] : 1985 Planned Disposition: Anticipated Discharge Date: Discharge Date: 04/18/2019 Expected LOS: Initial Reviewer: [email or web address] Initial Review Date: 04/16/2019 Generated: 04/19/19 6:47 pm DCP- Discharge Planning Updated by [email or web address]: Natalie Wilder on 04/18/19 9:[address] DC PLAN: MOB states she plans taking home Address: Can't give an address moving to [facility] tomorrow "Space in my Place" DC NEEDS: Denies any needs TRANSPORTATION: friend will transport to appointments or use [facility] bus WIC: No appointment yet MEDICAID: MOB states she has filled out paperwork CAR SEAT: Yes FEEDING PLAN: Plans breast feeding BABY NAME: Mathew Engel FOB: Lex Engel MOB: Idris Paul INSTRUMENT REPAIRER STEAM PLANT: Chanel CARE: MOB states she had care throughout SUPPLIES: MOB states has car seat, bed, diapers only has bottles from hospital to use if needed WATER SOURCE: city?? HEAT SOURCE: Electric ?? AIR CONDITIONING: yes ?? CM met with MOB after obtaining verbal consent regarding dc planning/needs. MOB to return to her home with infant. States home environment is safe. She states in addition to herself, five other people live in the home. MOB states she will have transportation either by friends or [employer] to follow up appointments. MOB states this is her fifth child. After CM probed asking multiple questions regarding patients other children she admitted that her other children was in DHS custody. Ages 5, 4, 1.5. The 11 yr. old child the father has custody. MOB states that she lost custody of children about a month ago d/t not having any electricity. 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 MOB states that ANNETTA is self-employed but will get another job once they move to [facility]. MOB states there are no pets in the home. MOB states that she and ANNETTA both smoke but it is outside the home. Denies any drug or etoh use in the home. When CM was asking about home situation and address JENNIFER was very vague. Stating she doesn't know about heat/ air / address or anything else directly related to home situation. MOB states that she has a friend that will pick her up after 10pm tonight after he gets off work. MOB states that she will stay with this friend tonight then move to [facility] tomorrow. MOB can't give an address of where she will stay tonight. Denies any other discharge needs at this time. CM will continue to follow and assist as needed with dc planning/needs. CM notified nursery staff regarding MOB not having custody of other children. CM also explained that it was very difficult to get information out of mother. CM called [facility] regarding questionable safety of upon discharge. DHS worker at [facility] didn't state that the infant needed to be held at hospital but CM, nursery and L&D nursing staff don't feel it would be safe for infant to discharge with no known address and with other children being already in [facility] custody. CASE # [id number] [facility] stated that it will probably be tomorrow before a case investigator will be out to evaluate. Nursery and L&D staff will notify physicians conveyancer. CM notified bathhouse keeper and CM puttying and calking supervisor. Last DP export: 04/18/19 9:14 p Patient Name: IDRIS PAUL Page [id number] at 1748 All edits/amendments must be made on the electronic document DICTATION DATE: 04/19/191746 DISPATCH SPECIALIST: LUDIVINA 04/19/191746 RPT#: [id number] DC DATE:04/18/19 STATUS: DIS IN [facility] [address] [facility] [place] [address] END OF REPORT
== END 2019-04-18 23:15 | disposition home or self-care (01) | DRG 807 ==
LOC: D.LD 05:12
PROVIDERS: ADMIT Obstetrics & Gynecology; ATTEND Obstetrics & Gynecology
PROC: 10E0XZZ Delivery of Products of Conception, External Approach (ICD-10-PCS; principal; 2019-04-16)
DX: O80 Encounter for full-term uncomplicated delivery (principal); Z37.0 Single live birth; Z3A.39 39 weeks gestation of pregnancy

== ENCOUNTER 2019-08-21 11:43 | Emergency (ER) | payer MEDICAID ==
[~2019-08-21] VITALS: Ht 160 cm; Wt 54.5 kg
[2019-08-21 11:58] VITALS: Ht 160 cm; Wt 54.5 kg
[2019-08-21] MEDS ORDERED: ERYTHROMYCIN OPT1 GM RIGHT EYE (13:30)
[2019-08-21 13:45] VITALS: BP 114/65
== END 2019-08-21 14:03 | disposition home or self-care (01) ==
LOC: D.ER 11:43
DX: S05.01XA Injury of conjunctiva and corneal abrasion without foreign body, right eye, initial encounter (principal); W22.8XXA Striking against or struck by other objects, initial encounter; Y92.512 Supermarket, store or market as the place of occurrence of the external cause

== ENCOUNTER 2021-03-05 14:08 | Emergency (ER) | payer OTHER ==
[~2021-03-05] VITALS: Ht 160 cm; Wt 47.7 kg
[~2021-03-05 14:08] MED LIST changes: +ERYTHROMYCIN OPT1 GM RIGHT EYE
[2021-03-05 14:13] VITALS: BP 127/77; Ht 160 cm; Wt 47.7 kg
[2021-03-05 15:04] LABS: BASOPHILS 0.3 % (0-2); EOSINOPHILS 1.3 % (0-7); HEMATOCRIT 33.7 % (36.0-48.0); HEMOGLOBIN 11.7 g/dL (12-16); LYMPHOCYTES 14.4 % (15-50); MCH 32.5 pg (26.0-34.0); MCHC 34.7 g/dL (31.0-37.0); MCV 93.8 fL (80.0-100.0); MEAN PLATELET VOLUME 6.4 fL (7.4-10.4); MONOCYTES 6.1 % (2-11); NEUTROPHILS 77.9 % (40-80); RDW 13.8 % (11.5-14.5); WBC 9.7 10x3/uL (4.8-10.8)
[2021-03-05 15:05] LABS: CALC OSMOLALITY 273 mosm/kg (275-300); CALCIUM 8.6 mg/dL (8.5-10.1); CARBON DIOXIDE 23.8 mmol/L (21.0-32.0); CHLORIDE - SERUM 103 mmol/L (98-107); CREATININE - SERUM 0.5 mg/dL (0.6-1.3); GLUCOSE 87 mg/dL (74-106); POTASSIUM - SERUM 3.7 mmol/L (3.5-5.1); SODIUM 138 mmol/L (136-145); UREA NITROGEN 10 mg/dL (7-18); eGFR NON AFRICAN AMERICAN > 90 mL/min (90-120)
[2021-03-05 15:07] LABS: PLATELET COUNT 251 10x3/uL (130-400)
[2021-03-05 15:21] LABS: ALKALINE PHOSPHATASE 91 U/L (30-120); ALT (SGPT) 23 U/L (10-68); BILIRUBIN - TOTAL 0.22 mg/dL (0.2-1.3); CKMB 0.4 U/L (0.0-3.6); CREATINE KINASE 34 UL (21-215); PROTEIN - SERUM 6.7 g/dL (6.4-8.2)
[2021-03-05 15:22] LABS: TROPONIN-I < 0.017 ng/mL (0.000-0.060)
[2021-03-05 15:48] LABS: BACTERIA FEW HPF (<MOD); BILIRUBIN NEGATIVE (NEGATIVE); KETONE NEGATIVE mg/dL (< 1+); NITRITE NEGATIVE (NEGATIVE); PH 5.5 (5.0-8.0); SQUAMOUS EPITHELIAL 13 HPF (0-4); UROBILINOGEN NORMAL mg/dL (< 2); WHITE CELLS - URINE 3 HPF (0-4)
[2021-03-05 15:53] LABS: UDS - AMPHET NEGATIVE QUAL (NEGATIVE); UDS - BARB NEGATIVE QUAL (NEGATIVE); UDS - BENZO NEGATIVE QUAL (NEGATIVE); UDS - COCAINE NEGATIVE QUAL (NEGATIVE); UDS - OPIATE NEGATIVE QUAL (NEGATIVE); UDS - PCP NEGATIVE QUAL (NEGATIVE); UDS - THC POSITIVE QUAL (NEGATIVE)
== END 2021-03-05 17:05 | disposition home or self-care (01) ==
LOC: D.ER 14:08
PROVIDERS: Emergency Medicine
DX: O99.891 Other specified diseases and conditions complicating pregnancy (principal); R00.0 Tachycardia, unspecified; Z3A.19 19 weeks gestation of pregnancy; R10.9 Unspecified abdominal pain